=== PATIENT | male | born 1955 | race Caucasian/White ===

== ENCOUNTER 2019-02-25 09:13 | Inpatient (IN) | payer OTHER ==
[~2019-02-25] VITALS: Ht 182.9 cm; Wt 121.2 kg
[2019-03-26] VITALS (11 sets, daily range): BP systolic 123–141; BP diastolic 67–89; PULSE 91–103; TEMP 97.1–98.2
[2019-03-26] MEDS ORDERED: VASOTEC 10M10 MG/TAB PO (09:17)
[2019-03-26] MEDS ORDERED: LIPITOR 40MG TA40 MG PO (09:17)
[2019-03-26] MEDS ORDERED: TRULICITY0.75 MG/0. SQ (09:18)
[2019-03-27 00:53] VITALS: BP 134/81; PULSE 99; TEMP 98.6
[2019-03-27 04:24] VITALS: BP 133/73; PULSE 97; TEMP 98.3
[2019-03-27 07:12] LABS: BASO % 0.2 % (0.0-2.0); EOS # 0.1 (0.0-0.7); EOS % 0.6 % (0-4.0); GRAN # 5.4 (1.4-6.5); GRAN % 63.1 % (42.2-75.2); HEMATOCRIT 37.4 % (42.0-52.0); HEMOGLOBIN 12.8 g/dl (13.5-18.0); LYMPH # 2.2 (1.2-3.4); LYMPH % 25.7 % (20.0-51.0); MEAN CELL VOLUME 91 fl (80.0-100.0); MEAN CORPUSCULAR HEMOGLOBIN 31 pg (27.0-31.0); MEAN CORPUSCULAR HGB CONC 34 g/dl (33.0-37.0); MEAN PLATELET VOLUME 9.3 fl (7.4-10.4); MONO # 0.9 (0.1-0.6); MONO % 9.9 % (1.7-9.3); PLATELET COUNT 166 K/mm3 (130-400); RED BLOOD COUNT 4.11 M/mm3 (4.20-5.60); REDCELL DISTRIBUTION WIDTH-CV 12.6 % (11.5-14.5)
[2019-03-27 07:25] LABS: CALCIUM 8.3 mg/dL (8.4-10.2); CREATININE, serum 0.85 (0.66-1.25)
[2019-03-27 07:37] VITALS: BP 140/77; PULSE 97; TEMP 97.9
[2019-03-27 11:42] VITALS: BP 123/68; PULSE 81; TEMP 98
[2019-03-27 15:47] VITALS: BP 135/71; PULSE 89; TEMP 97.8
[2019-03-28 01:30] VITALS: BP 127/73; PULSE 84; TEMP 97.7
[2019-03-28 05:40] VITALS: BP 126/85; PULSE 79; TEMP 97.9
[2019-03-28 07:38] VITALS: BP 135/80; PULSE 93; TEMP 98
[2019-03-28 12:32] VITALS: BP 135/70; PULSE 88; TEMP 97.6
== END 2019-03-28 14:42 | disposition home or self-care (01) | DRG 708 ==
LOC: SURG 03-26 08:16 → INPTSU 03-26 08:16 → SURG 03-26 10:30
PROVIDERS: ADMIT Urology
PROC: 0VT04ZZ Resection of Prostate, Percutaneous Endoscopic Approach (ICD-10-PCS; principal; 2019-03-26 10:30)
DX: C61 Malignant neoplasm of prostate (principal); I10 Essential (primary) hypertension; E78.5 Hyperlipidemia, unspecified; E11.9 Type 2 diabetes mellitus without complications
CPT/HCPCS: A4314; A9284; J0690; J1885; J2405; J2704; J3010; J7120